=== PATIENT | male | born 1965 | race Caucasian/White ===

== ENCOUNTER 2021-07-16 13:30 | Outpatient (RCR) | payer OTHER, SELFPAY ==
--- NOTE | 2021-06-14 15:49 | PTOPEVAL ---
Thank you for referring Vivek Clark to [facility].? The patient is scheduled to be seen for therapy? 2 x/week for 6 weeks. Please review, sign, date and return this plan of care JONO. I agree with and certify that the following plan of care is medically necessary. Referring Physician Date Attending Provider: Papito Martinez PA-C Diagnosis left shoulder pain Onset 2-3 months ago Additional Evaluation Detail His fitness routine is mainly walking with some jogging. He has not performing any resistance training. He has been more sedentary for the past 1 1/2 yrs. Subjective Information Reports his 70# dog pulled on Query Text:As Reported By Patient/ his arm backwards 2-3 months Family ago. He reports limitations and pain with reaching behind his back for activities. The pain will wake him if he sleeps on left side. Denies any limitations with reaching overhead or lifting objects off the ground. 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 He has some pain and limitations with reaching motions to move patient's. No x-ray taken. Pain Assessment Left Shoulder(s) Reported Pain Level 1 Pain Description Aching,Throbbing Pain Frequency Acute,Continuous Lowest Pain Intensity 1 Greatest Pain Intensity 9 Pain Aggravating Factors ADL's Upper Extremity Range of Motion Scapular/ Shoulder Range of Motion Left Scapular: Retraction Hypomobile Scapular: Protraction Hypomobile Scapular Downward Rotation Hypomobile Scapular Upward Rotation Hypomobile Shoulder Flexion - Active 165 Shoulder Extension - Active 38 Shoulder Abduction - Active 125 Shoulder Medial Rotation - Active 60 Shoulder Medial Rotation - Active sacrum:Reach Behind the Back Shoulder Lateral Rotation - Active 60 Shoulder Lateral Rotation - Active C5:Reach Behind the Head Scapular/Shoulder Range of Motion Pain Limitations Scapular/Shoulder Range of Motion posterior GH joint pain Comments poor inf GH glide and scapulothoracic movement rotation measured with Gh
--- NOTE | 2021-07-16 15:00 | PTOPEVAL ---
Physical Therapy Discharge Summary Thank you for referring Vivek Clark to [facility].? Vivek has attened 9 therapy visits to address his shoulder impairments. See summary below for detail on his progress and UE function. Recommend he f/u with his doctor to determine his next treatment options. Please review, sign, date and return this discharge summary JONO. I agree with and certify that the following plan of care is medically necessary. Referring Physician Date Attending Provider: Papito Martinez, VANNA Diagnosis left shoulder pain Onset 2-3 months ago Additional Evaluation Detail His fitness routine is mainly walking with some jogging. He has not performing any resistance training. He has been more sedentary for the past 1 1/2 yrs. Subjective Information Reports his shoulder is Query Text:As Reported By Patient/ feeling better with decreased Family pain and soreness. He is able to reach behind his back without limitations. He is able to sleep through the night most of the time. He performs his HEP 4-5x/wk. She will have an occasional shoulder pain, but only last a few minutes. 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 He traveled to [place] the other month without limitations. Pain Assessment Self Report Pain Assessment Left Shoulder(s) Reported Pain Level 0 Lowest Pain Intensity 0 Greatest Pain Intensity 3 Upper Extremity Range of Motion Scapular/ Shoulder Range of Motion Left Shoulder Flexion - Active 170 Shoulder Extension - Active 50 Shoulder Abduction - Active 170 Shoulder Medial Rotation - Active 70 Shoulder Medial Rotation - Active T10:Reach Behind the Back Shoulder Lateral Rotation - Active 65 Shoulder Lateral Rotation - Active T1:Reach Behind the Head Scapular/Shoulder Range of Motion Pain Limitations Scapular/Shoulder Range of Motion improved scapulothoracic Comments movement pain with rotation and abduction Upper Extremity Muscle Strength Testing Scapular/Shoulder Left Scapular Retraction - Middle Trapezius 4- Good - Scapu
== END 2021-07-16 16:53 | disposition home or self-care (01) ==
LOC: ANHPT 13:30
PROVIDERS: PCP Family Medicine; Visit Provider Physician Assistant
DX: M25.512 Pain in left shoulder (principal)
CPT/HCPCS: 97014; 97110; 97140; 97162; G0283